=== PATIENT | male | born 1990 | race Caucasian/White ===

== ENCOUNTER 2018-07-23 14:07 | Emergency (ER) | payer SELFPAY ==
[~2018-07-23] VITALS: Ht 172.7 cm; Wt 81.8 kg
[2018-07-23 15:03] VITALS: Ht 172.7 cm; Wt 81.8 kg
[2018-07-23 19:06] LABS: microscopic required? YES; urine erythrocyte 1+ (NEGATIVE)
[2018-07-23 19:55] VITALS: BP 132/74
== END 2018-07-23 19:55 | disposition home or self-care (01) ==
LOC: ED 14:07
PROVIDERS: Emergency Medicine
DX: N50.3 Cyst of epididymis (principal); N39.0 Urinary tract infection, site not specified
CPT/HCPCS: 82962; Q0092